=== PATIENT | female | born 1995 | race Caucasian/White ===

== ENCOUNTER → 2018-02-18 | Outpatient (CLI) | payer MEDICAID ==
[~2018-02-18] MED LIST: DEXAMETHASONE 10 MG/ML (DECADRON) 1 ML VIAL ONE; LIDOCAINE PF 2% 5 ML (XYLOCAINE) VIAL ONE; MIDAZOLAM 2 MG/2 ML (VERSED) VIAL ONE; ONDANSETRON 4 MG/2 ML (SDV) Z0FRAN ONE; SEVOFLURANE (ULTANE) 15 ML INHAL SOLN ONE; fentaNYL INJECTION 100 MCG/2 ML AMP ONE; proPOfol 200 MG/20 ML (DIPRIVAN) VIAL IV ONE
--- NOTE | 2018-02-18 11:43 | Diagnostic Imaging Report ---
Indication: Vaginal bleeding and early . Findings: The uterus measures 6.1 x 2.8 x 3.8 cm. No myometrial mass is seen. Endometrium is 3 mm in thickness. No intrauterine gestational sac is identified. The right ovary measures 2.5 x 3.3 x 2.4 cm and the left ovary measures 2.3 x 3.3 x 1.8 cm. There appears to be a mass adjacent to the right ovary measuring 2.5 x 2.2 x 2.1 cm. There is some vascularity along the margins. Left ovary contains multiple follicles. There is some free fluid noted in the pelvis which does contain some internal debris. Impression: No evidence of intrauterine . There is a mass adjacent to the right ovary as well as with moderate free fluid containing internal debris. The possibility of a right adnexal cannot be entirely excluded. Correlation with beta hCG levels is recommended. Correlation with serial beta hCG levels and/or followup ultrasound is recommended. Results were called to Dr. Palumbo by the cardiac technologist at the time of the exam. Dictated by: Dictated on workstation # [id number]
== END ==
LOC: RAD 09:37
PROVIDERS: ATTEND Family Medicine
DX: O20.9 Hemorrhage in early pregnancy, unspecified (principal); Z3A.00 Weeks of gestation of pregnancy not specified
CPT/HCPCS: 76801; 76817